=== PATIENT | female | born 1975 | race Caucasian/White ===

== ENCOUNTER 2017-04-20 14:05 | Emergency (ER) | payer BC ==
[~2017-04-20] VITALS: Ht 180.3 cm; Wt 155.1 kg
[2017-04-20 14:05] VITALS: BP_SYST 143
[2017-04-20 14:37] LABS: BASOPHILS # (AUTO) 0.1 K/uL (0.0-0.2); BASOPHILS % (AUTO) 1.8 % (0.0-2.0); EOSINOPHILS # (AUTO) 0.1 K/uL (0.0-0.4); EOSINOPHILS % (AUTO) 0.8 % (0.0-4.0); HEMATOCRIT 38.5 % (36-48); HEMOGLOBIN 12.5 g/dL (12.0-16.0); LYMPHOCYTES # (AUTO) 1.5 K/uL (1.0-5.5); LYMPHOCYTES % (AUTO) 19.7 % (20.5-51.5); MEAN CORPUSCULAR HEMOGLOBIN 26 pg (27-31); MEAN CORPUSCULAR HGB CONC 33 % (32-36); MEAN CORPUSCULAR VOLUME 80 fL (79.0-98.0); MONOCYTES # (AUTO) 0.7 K/uL (0.0-1.0); MONOCYTES % (AUTO) 8.7 % (1.7-9.3); NEUTROPHILS # (AUTO) 5.2 K/uL (1.8-7.7); PLATELET COUNT (AUTO) 191 K/uL (130-430); RED BLOOD CELL COUNT(AUTO) 4.79 MIL/uL (4.2-6.2); RED CELL DISTRIBUTION WIDTH 14.8 % (9.0-15.0); WHITE BLOOD COUNT (AUTO) 7.6 K/uL (4.8-10.8)
[2017-04-20 14:41] LABS: CREATININE 1.25 mg/dL (0.55-1.30); POTASSIUM 3.2 mmol/L (3.5-5.1)
[2017-04-20 14:44] LABS: PROTHROMBIN TIME 11.3 SECS (9.5-12.5)
[2017-04-20 14:46] LABS: ALBUMIN 2.5 g/dL (3.4-4.8); TOTAL BILIRUBIN 0.5 mg/dL (0.0-1.0); TOTAL PROTEIN, SERUM 6.8 g/dL (6.4-8.3)
--- NOTE | 2017-04-20 14:55 | NUR ---
Pt placed in bed 6 by triage nurse.
--- NOTE | 2017-04-20 14:58 | NUR ---
Pt her for c/o multiple syncopal episodes within a week. Pt stated she had 2 syncopal episodes today, one at 0530 am and another at 1300 today. Pt c/o LOC, witnessed at 1300 today. Brusing noted to left upper arm, and abrasions to toes. Pt states she had gastric bypass surgery March 2017. EKG done at bedside. Pt is placed on electronic device monitor and continuous pulse ox. Will continue to monitor pt.
--- NOTE | 2017-04-20 15:00 | NUR ---
Dr. Asencio at bedside to assess pt.
--- NOTE | 2017-04-20 15:08 | NUR ---
Pt taken to CT with tech, no distress noted.
[2017-04-20] MEDS ORDERED: NACL 0.9% 1,000 ML IV ONE (15:45)
[2017-04-20] MEDS ORDERED: DEXTROSE 50% JECT 50 ML DISP.SYRIN IVP ONE (15:45)
[2017-04-20 18:08] VITALS: BP_SYST 118
--- NOTE | 2017-04-20 18:08 | NUR ---
Patient given written and verbal discharge instructions and verbalizes understanding. ER MD discussed with patient the results and treatment provided. Patient in stable condition. ID arm band removed. IV catheter removed intact and dressing applied, no active bleeding.Opportunity for questions provided and answered.
== END 2017-04-20 18:08 | disposition home or self-care (01) ==
LOC: SED 14:05
DX: E86.0 Dehydration (principal); R55 Syncope and collapse; E11.9 Type 2 diabetes mellitus without complications; I10 Essential (primary) hypertension; E66.01 Morbid (severe) obesity due to excess calories; Z68.42 Body mass index [BMI] 45.0-49.9, adult; Z98.84 Bariatric surgery status
CPT/HCPCS: 36415; 70450; 71010; 80053; 81025; 82550; 84484; 85025; 85610; 85730; 93005; 96360; 99285; J7030

== ENCOUNTER 2019-08-21 14:40 | Inpatient (IN) | payer MEDICAID, OTHER ==
[~2019-08-21] VITALS: Ht 180.3 cm; Wt 98.0 kg
[~2019-08-21 14:40] MED LIST: AMOX-423 PO; BIOT5000 PO; CALC-823 PO; CYAN50008 SL; D3/R1CAP PO; ESCI20TA PO; FERR-69 PO; FLAX1CAP6 PO; FOLI400T4 PO; FURO-149 PO; LISI-600 PO; MULT-1089 PO; MV-M1CAP18 PO; OMEG-155 PO
[2019-08-21 14:44] VITALS: BP_SYST 152
--- NOTE | 2019-08-21 15:18 | NUR ---
BROUGHT BACK TO BED #4 VIA WHEELCHAIR, PLACED IN BED AND REPORT GIVEN TO AILEEN
--- NOTE | 2019-08-21 15:35 | NUR ---
DR HALL AT BEDSIDE FOR EVALUATION
--- NOTE | 2019-08-21 15:40 | NUR ---
Pt awake, alert, oriented x4. Pt states she has had Diabetic ulcer on R foot for approx 2 weeks and has had increased swelling and pain in R foot and leg without relief for 2 weeks. Pt states that she has infections in the past and was worried the infection was getting worse. Pt has good CMS to affected extremity, has had nausea, vomiting and chills. Pt denies SOB, CP, Pt is Afebrile upon presenting to ED or any other medical complaint at this time. pt VSS, will continue to monitor. Pt provided with blanket for comfort.
--- NOTE | 2019-08-21 15:42 | NUR ---
# 20 gauge angiocath placed to LAC. Use of asceptic technique. Opsite placed over site. Blood return noted. Flushed with 10 cc of normal saline. No evidence of infiltration noted. Patient tolerated well.
[2019-08-21] MEDS ORDERED: VANCOMYCIN HCL 1,000 MG in NS 250 ML IV ONE (15:45)
[2019-08-21] MEDS ORDERED: NS 1000 ML IV.SOLN IV ONE ×2 (15:45→18:30)
[2019-08-21] MEDS ORDERED: MORPHINE 4 MG/ML INJ. SYRINGE IVP ONE (15:45)
[2019-08-21] MEDS ORDERED: PIPERACILLIN/TAZO 3.375 GM in NS 50 ML IV ONE (15:45)
[2019-08-21] MEDS ORDERED: ONDANSETRON HCL 4 MG/2 ML VIAL IVP ONE ×2 (15:45→18:30)
--- NOTE | 2019-08-21 15:45 | NUR ---
Pt resting in Bed confortably. No acute signs of distress at this time. Pt states some pain relief at this time.
[2019-08-21 15:46] LABS: HEMATOCRIT 29.2 % (36-48); HEMOGLOBIN 9.5 g/dL (12.0-16.0); MEAN CORPUSCULAR HEMOGLOBIN 28 pg (27-31); MEAN CORPUSCULAR HGB CONC 33 % (32-36); MEAN CORPUSCULAR VOLUME 87 fL (79.0-98.0); PLATELET COUNT (AUTO) 379 K/uL (130-430); RED BLOOD CELL COUNT(AUTO) 3.38 MIL/uL (4.2-6.2); RED CELL DISTRIBUTION WIDTH 13.4 % (9.0-15.0)
--- NOTE | 2019-08-21 15:52 | NUR ---
Patient's code status is FULL CODE paperwork completed and placed in chart.
--- NOTE | 2019-08-21 15:53 | NUR ---
Medication reconciliation completed with information provided by PATIENT. Any prior medication reconciliation on file was reviewed and corrected.
[2019-08-21 15:56] LABS: INR 1.1 (0.8-1.2)
[2019-08-21 16:07] LABS: BAND % (MANUAL) 10 % (0-6); BASOPHILS % (MANUAL) 0 % (0-2); EOSINOPHILS % (MANUAL) 0 % (0-7); LYMPHOCYTES % (MANUAL) 4 % (20-46); MONOCYTES % (MANUAL) 4 % (0-11)
[2019-08-21] MEDS ORDERED: PIPERACILLIN/TAZOBACTAM 3.375 GM/VIAL (ZOSYN) IV ONE ×2 (16:09→21:41)
[2019-08-21] MEDS ORDERED: VANCOMYCIN HCL 1000 MG/VIAL IV ONE ×2 (16:09→21:41)
[2019-08-21] MEDS ORDERED: ONDANSETRON HCL 4 MG/2 ML VIAL ONE (16:12)
[2019-08-21 16:13] LABS: ALBUMIN 1.2 g/dL (3.4-4.8); CREATININE 1.87 mg/dL (0.55-1.30); POTASSIUM 4.4 mmol/L (3.5-5.1); TOTAL BILIRUBIN 0.3 mg/dL (0.0-1.0)
[2019-08-21] MEDS ORDERED: NACL 0.9% 1,000 ML IV ONE (16:15)
--- NOTE | 2019-08-21 16:27 | NUR ---
Patient will be admitted to care of Dr. Ramon. Admitted to Med Surg unit. Will go to room 100B. Belongings list completed. Summary report printed. Report will be given at bedside.
[2019-08-21] MEDS ORDERED: 0.45% NACL 1,000 ML IV ONE (16:30)
[2019-08-21 16:38] LABS: CALCIUM 7.8 mg/dL (8.4-11.0)
--- NOTE | 2019-08-21 17:40 | NUR ---
Transfer to [facility]. IV present in LAC no sign or symptom of infiltration. Report Given to JODI Rogers
--- NOTE | 2019-08-21 17:41 | NUR ---
Lab Bedside Drawing LActic #2
--- NOTE | 2019-08-21 18:15 | NUR ---
ADMISSION NOTES. RECEIVED PT FROM E.R. , PT IS AAOX4, ON ROOM AIR. VITALS WNL. PT ADMITTED UNDER DR BAUTISTA WITH DX OF R. FOOT CELLULITIS. DENIES PAIN AT THIS TIME. PT GIVEN MORPHINE AT E.R. PHOTO OF WOUNDS TAKEN. ON R. FOOT. DR BAUTISTA SAW PICTURES, TOLD MD THAT WE GOT WOUND CULTURE SWABS. PT EDUCATED ON THE USE OF THE CALL LIGHT TV AND BED CONTROLS. WILL ENDORSE TO NIGHT NURSE.
[2019-08-21] MEDS ORDERED: CLINDAMYCIN PHOSPHATE 600 mg/50mL D5W IV ONE (18:30)
[2019-08-21] MEDS ORDERED: PROPOFOL 200MG/ 20ML VIAL (DIPRIVAN) IV ONE (18:30)
[2019-08-21] MEDS ORDERED: AMPICILLIN SODIUM 1 GM VIAL IV ONE (18:30)
[2019-08-21] MEDS ORDERED: fentaNYL CITRATE 250 MCG/5 ML AMP IV ONE (18:30)
[2019-08-21] MEDS ORDERED: SEVOFLURANE 15 MIN GAS INH ONE (18:30)
[2019-08-21] MEDS ORDERED: ROCURONIUM BROMIDE 10 MG/ML (ZEMURON) IV ONE (18:30)
[2019-08-21] MEDS ORDERED: MIDAZOLAM HCL 5 MG/5 ML VIAL IVP ONE (18:30)
[2019-08-21] MEDS ORDERED: KETOROLAC TROMETHAMINE 30 MG VIAL IVP ONE (18:30)
[2019-08-21] MEDS ORDERED: DEXAMETHASONE SOD PHOSPHATE 4 MG/ML VIAL IVP ONE (18:30)
[2019-08-21 18:43] VITALS: BP_SYST 127
--- NOTE | 2019-08-21 19:34 | NUR ---
PRIMARY PRODUCTS INSPECTORS ROSALBA MADE AWARE OF THE CONSULT, ROSALBA SAID HE WILL SEE PT ON SATURDAY.
--- NOTE | 2019-08-21 19:35 | NUR ---
CHANGE OF SHIFT: endorsed pt. , was just admitted from ER with Diagnosis of Rt. foot cellulitis. checked pt. alert , awake, oriented to her room and use of call light. rt. foot wound with dressing intact. IV NS infusing via left antecubital, IV pump alarming pt. bending her arm fo occlusion. will reassess later.
--- NOTE | 2019-08-21 19:50 | NUR ---
CONSULTATION PAGED/CALLED Reason for Consultation: CELLULITIS OF RIGHT FOOT Person Who was Notified: NICOLAS Consulting Physician: DR. DUBOSE Ordering Physician: DR. BAUTISTA
[2019-08-21 20:00] VITALS: BP_SYST 113
--- NOTE | 2019-08-21 20:00 | NUR ---
ADMISSION PHYSICAL ASSESSMENT NOTES; pt. awake, alert and oriented. instructed to use call light for help. IV NS infusing, will need to restart another IV site. moves all extremities , noted bilateral swelling of both lower extremities , more on rt. side, rt. foot wound with dressing intact. pain free at this time, was given Morphine earlier. pictures taken on admission and wound care referral consult made. on room air, no shortness of breath. VS checked.
--- NOTE | 2019-08-21 21:30 | NUR ---
NOTES: BS checked 194 will give sliding scale coverage. repositioned self for comfort. IV NS still infusing. pt. starts dozing on and off.
[2019-08-21] MEDS: PIPERACILLIN/TAZO 3.375/DEX-IS 50 ML IV SCH (22:00)
--- NOTE | 2019-08-21 22:00 | NUR ---
NOTES: pt. asking for sleeping pill, informed pt. MD needs to be called, mathematical engineering technician asked to call Dr. aguilar.
--- NOTE | 2019-08-21 22:30 | NUR ---
NOTES: another IV site started on left hand with gauge #22, new IV of 1/2 NS @ 75 cc/hr started and IV antibiotic , kept IV lock on left antecubital.
[2019-08-21] MEDS: INSULIN REGULAR, HUMAN 100 UNITS/ML, 10 ML VIAL (humuLIN R) SUBCUT PRN (22:33)
--- NOTE | 2019-08-21 22:37 | NUR ---
Paged Dr. Ramon
--- NOTE | 2019-08-21 23:00 | NUR ---
NOTES: Dr. Ramon called back and got an order for sleeping pill, needs pharmacy to verify.
--- NOTE | 2019-08-22 00:05 | NUR ---
NOTES: checked pt. and she is sleeping soundly at this time, did not wake up for sleeping pill.
[2019-08-22 00:25] VITALS: BP_SYST 118
--- NOTE | 2019-08-22 03:30 | NUR ---
NOTES: made rounds, pt. remain sleeping. condition unchanged.
[2019-08-22] MEDS ORDERED: VANCOMYCIN HCL 1 GM/NS PREMIX 250 ML IV SCH (04:00)
--- NOTE | 2019-08-22 06:00 | NUR ---
NOTES; pt. awakened and checked BS , no insulin needed. IV antibiotic infusing. still sleepy.
[2019-08-22] MEDS: PIPERACILLIN/TAZO 3.375/DEX-IS 50 ML IV SCH ×3 (06:03→21:23)
[2019-08-22 06:15] LABS: BASOPHILS # (AUTO) 0.1 K/uL (0.0-0.2); BASOPHILS % (AUTO) 0.3 % (0.0-2.0); EOSINOPHILS # (AUTO) 0.1 K/uL (0.0-0.4); EOSINOPHILS % (AUTO) 0.5 % (0.0-4.0); HEMOGLOBIN 7.7 g/dL (12.0-16.0); LYMPHOCYTES # (AUTO) 1.1 K/uL (1.0-5.5); MEAN CORPUSCULAR HEMOGLOBIN 28 pg (27-31); MEAN CORPUSCULAR HGB CONC 32 % (32-36); MEAN CORPUSCULAR VOLUME 88 fL (79.0-98.0); MONOCYTES # (AUTO) 1.8 K/uL (0.0-1.0); MONOCYTES % (AUTO) 9.5 % (1.7-9.3); NEUTROPHILS # (AUTO) 15.8 K/uL (1.8-7.7); NEUTROPHILS % (AUTO) 83.7 % (40.0-70.0); PLATELET COUNT (AUTO) 255 K/uL (130-430); RED BLOOD CELL COUNT(AUTO) 2.73 MIL/uL (4.2-6.2); RED CELL DISTRIBUTION WIDTH 13.7 % (9.0-15.0); WHITE BLOOD COUNT (AUTO) 18.9 K/uL (4.8-10.8)
[2019-08-22 06:19] LABS: CALCIUM 7.2 mg/dL (8.4-11.0); CREATININE 1.9 mg/dL (0.55-1.30); POTASSIUM 4.2 mmol/L (3.5-5.1)
--- NOTE | 2019-08-22 06:30 | NUR ---
CLOSING NOTES; pt. ambulated to the restroom , voided and had BM. IVF patent. noted some rt. foot discomfort but tolerable when in bed and resting. rt. foot dressing intact, noted some foul,odor smell. consult with Dr. Gupta today. pt. needs attended. for further assistance. call light within reach.
--- NOTE | 2019-08-22 07:30 | NUR ---
Opening note Patient resting in bed at this time, A/Ox4, no complaints of pain. No SOB. Iv patent, intact, and infusing as ordered. No adverse side effects noted. No infiltration noted. On safety and aspiration precautions, HOB kept elevated, 3 side rails up, call light within reach. Patient in stable condition. Will continue to monitor.
[2019-08-22 08:15] VITALS: BP_SYST 145
[2019-08-22] MEDS: CITALOPRAM HYDROBROMIDE 20 MG TABLET PO SCH (08:55)
[2019-08-22] MEDS: HYDROcodone/ACETAMIN 5-325 MG TAB (NORCO/ VICODIN) PO PRN ×2 (08:56→16:13)
--- NOTE | 2019-08-22 09:00 | NUR ---
medications All morning medications given as ordered. No adverse side effects noted. No nausea, no vomiting noted.
--- NOTE | 2019-08-22 11:00 | NUR ---
Wound care Wound care done as ordered. New dressing applied. No complaints of pain at this time. patient in stable condition.
[2019-08-22 11:26] VITALS: BP_SYST 106
[2019-08-22] MEDS: INSULIN REGULAR, HUMAN 100 UNITS/ML, 10 ML VIAL (humuLIN R) SUBCUT PRN ×2 (11:37→21:27)
--- NOTE | 2019-08-22 13:00 | NUR ---
Lunch patient sitting up in bed at this time, eating lunch, tolerating well. No nausea, no vomiting noted. no complaints of abdominal pain.
--- NOTE | 2019-08-22 15:00 | NUR ---
Rounds Patient resting in bed at this time, no SOB. Iv patent, and intact. No infiltration noted.
[2019-08-22 15:19] VITALS: BP_SYST 104
[2019-08-22] MEDS ORDERED: FLU VACC QS2019-20 36MOS UP/PF 60 MCG/0.5 ML SYRINGE I.M. PRN (16:00)
[2019-08-22] MEDS: VANCOMYCIN HCL 1,750 MG in NS 500 ML IV SCH (16:12)
--- NOTE | 2019-08-22 16:15 | NUR ---
Flu shot patient consented for the flu shot, given as ordered. no adverse side effects noted. no complaints of pain.
--- NOTE | 2019-08-22 17:35 | NUR ---
CONSULTATION PAGED REASON FOR CONSULTATION:CELLULITIS OF RIGHT FOOT WAS CONSULT CALLED?Y PERSON WHO WAS NOTIFIED:HAKEEM CONSULTING PHYSICIAN:RIAN LOPEZ ( TELEPHONE TRIAGE NURSE) EXCEL DEVELOPER SPECIALTY:INFECTIOUS DISEASE EXCEL DEVELOPER PHONE NUMBER:[phone] REQUESTING PHYSICIAN:SARAY VELEZ
--- NOTE | 2019-08-22 18:47 | NUR ---
Closing note Patient resting in bed at this time, A/Ox4, no complaints of pain. No SOB. Iv patent, intact. No adverse side effects noted. No infiltration noted. On safety and aspiration precautions, HOB kept elevated, 3 side rails up, call light within reach. Patient in stable condition. All needs met.
[2019-08-22 19:50] VITALS: BP_SYST 111
--- NOTE | 2019-08-22 19:50 | NUR ---
Opening notes Pt AAOx4, VSS, afebrile. No c/o pain. IV saline lock L hand 22G and L. AC 20G clear and patent. Family at bedside. R. foot dressing intact. Call light within reach. To monitor.
--- NOTE | 2019-08-22 21:27 | NUR ---
Blood sugar Blood sugar checked 189, 2 units Regular insulin administered per ss protocol. IV antibiotic administered as scheduled. To monitor.
[2019-08-22] MEDS: TEMAZEPAM 15 MG CAPSULE PO PRN (22:08)
--- NOTE | 2019-08-22 22:18 | NUR ---
WOUND CARE R. foot sole wound with moderate amount of light brown drainage and odor noted. Dressing cleansed with NS and applied foam dressing, secured with kerlix and tape, pt tolerated well. To monitor.
[2019-08-23 00:05] VITALS: BP_SYST 103
--- NOTE | 2019-08-23 00:30 | NUR ---
ROUNDS Pt asleep, no s/s distress noted. Call light/items within reach. Bed low, locked, siderails up x2. To monitor.
--- NOTE | 2019-08-23 04:20 | NUR ---
Rounds Pt asleep, respirations even and unlabored. Call light/items within easy reach. Bed low, locked, siderails up x2. To monitor.
[2019-08-23] MEDS: PIPERACILLIN/TAZO 3.375/DEX-IS 50 ML IV SCH ×3 (06:29→21:42)
--- NOTE | 2019-08-23 06:30 | NUR ---
Closing notes Pt asleep, easily arousable. No distress noted. Pt states she slept well. IV abx administered as scheduled L. hand 22G clear and patent. Blood sugar checked 126 this AM, no indication for insulin per protocol. R. foot dressing intact. Call light within reach. Safety measures in place. To endorse to AM nurse.
--- NOTE | 2019-08-23 07:27 | NUR ---
Opening note Patient resting in bed at this time, A/Ox4, no complaints of pain. No SOB. Iv patent, intact. No adverse side effects noted. No infiltration noted. Dressing on foot intact. On safety and aspiration precautions, HOB kept elevated, 3 side rails up, call light within reach. Patient in stable condition. Will continue to monitor.
[2019-08-23 08:00] VITALS: BP_SYST 107
[2019-08-23] MEDS: HYDROcodone/ACETAMIN 5-325 MG TAB (NORCO/ VICODIN) PO PRN (08:20)
[2019-08-23] MEDS: CITALOPRAM HYDROBROMIDE 20 MG TABLET PO SCH (08:20)
--- NOTE | 2019-08-23 09:00 | NUR ---
medications All morning medications given as ordered. No adverse side effects noted. No nausea, no vomiting.
--- NOTE | 2019-08-23 10:23 | NUR ---
Nutrition Update Gurpreet Scale 17 noted. Pt admitted for cellulitis. Diet: [facility] BMI: 30 kg/m2 RD to follow per nutrition care standards.
--- NOTE | 2019-08-23 11:00 | NUR ---
Wound care/ Changes Old dressing removed. Patient noted with worsening of the wound during wound care. right foot 2nd toe purplish in color with heavy Serosanguineous drainage. Dr. Childers (ID) at bedside, stated to call Dr. zurita, and lauren. New orders for clindamycin, x ray of foot. Cleansed patient foot with NS as ordered, dressing change done as ordered. Patient awaiting to be seen by Dr. Zurita.
[2019-08-23] MEDS ORDERED: CLINDAMYCIN 600 MG in D5W 50 ML IV STA (11:07)
--- NOTE | 2019-08-23 11:07 | NUR ---
PAGED PAGED SARAY VELEZ AT [phone] SPOKE WITH KELSEY.
--- NOTE | 2019-08-23 11:19 | NUR ---
PAGED PAGED KIMBERLEE DAILY AT [phone] SPOKE WITH TEMO.
[2019-08-23] MEDS: INSULIN REGULAR, HUMAN 100 UNITS/ML, 10 ML VIAL (humuLIN R) SUBCUT PRN ×3 (11:48→21:19)
[2019-08-23 11:56] LABS: BILIRUBIN,URINE NEGATIVE (NEGATIVE); BLOOD, URINE 2+ (NEGATIVE); CLARITY/URINE CLEAR (CLEAR); COLOR,URINE YELLOW (YELLOW); GLUCOSE,URINE 1+ (NEGATIVE); KETONES,URINE NEGATIVE (NEGATIVE); LEUKOCYTE ESTERASE ,URINE NEGATIVE (NEGATIVE); NITRITE, URINE NEGATIVE (NEGATIVE); PH,URINE 7.5 (5.0-8.0); PROTEIN URINE 3+ (NEGATIVE)
[2019-08-23 12:00] VITALS: BP_SYST 125
[2019-08-23 12:05] LABS: BACTERIA,URINE MODERATE /HPF (None Seen); COARSE GRANULAR CASTS,URINE 0-10 /LPF (None Seen); WBC,URINE 0-3 /HPF (0-3)
--- NOTE | 2019-08-23 13:00 | NUR ---
Lunch patient sitting up in bed at this time, eating dinner, tolerating well. No nausea, no vomiting. No abdominal pain.
[2019-08-23] MEDS ORDERED: GLUCOSE 15 GM GEL (in 37.5 GM TUBE) PO PRN (14:00)
[2019-08-23] MEDS ORDERED: D5W 1,000 ML IV PRN (14:00)
[2019-08-23] MEDS ORDERED: DEXTROSE 50%-WATER 50 ML DISP.SYRIN IVP PRN (14:00)
--- NOTE | 2019-08-23 15:00 | NUR ---
Dr. aguilar rounds Patient seen by , patient to be seen by Dr. cowan.
--- NOTE | 2019-08-23 15:37 | NUR ---
Dietitian Recommendations * Recommend continuing [facility] diet * Small portions TID * ADAIR provided diabetic recipes ADAIR TODD Please refer to Nutrition Assessment for details. Addendum: 08/23/19 at [address] Amended: Links added.
[2019-08-23] MEDS: VANCOMYCIN HCL 1,750 MG in NS 500 ML IV SCH (16:17)
--- NOTE | 2019-08-23 17:30 | NUR ---
Dinner patient sitting up in bed at this time, eating dinner, tolerating well. No nausea, no vomiting noted.
--- NOTE | 2019-08-23 18:50 | NUR ---
Closing note Patient resting in bed at this time, A/Ox4, no complaints of pain. No SOB. Iv patent, intact. No adverse side effects noted. No infiltration noted. Dressing on foot intact. On safety and aspiration precautions, HOB kept elevated, 3 side rails up, call light within reach. Patient in stable condition. All needs met.
--- NOTE | 2019-08-23 19:35 | NUR ---
ROUNDS PATIENT RESTING IN BED, WATCHING TV, VITALS STABLE, NO PAIN AT THIS TIME. ASSESSMENT DONE AND DOCUMENTED. SEE FLOWSHEET. NEEDS ATTENDED TO. SAFETY MEASURES MAINTAINED. BED IN LOW AND LOCKED POSITION. CALL LIGHT PLACED WITHIN REACH.
--- NOTE | 2019-08-23 19:46 | NUR ---
PAGED PAGED KIMBERLEE DAILY AT [phone] SPOKE WITH SOFI ROBLES JUICE STANDARDIZER.
[2019-08-23] MEDS: CLINDAMYCIN 600 MG in D5W 50 ML IV SCH (20:33)
--- NOTE | 2019-08-23 21:00 | NUR ---
DR. MONTAÑO PATIENT SEEN AND EXAMINED BY DR. MONTAÑO WITH NEW ORDERS, WILL CONTINUE TO MONITOR.
[2019-08-23] MEDS: TEMAZEPAM 15 MG CAPSULE PO PRN (21:15)
[2019-08-24 00:10] VITALS: BP_SYST 98
--- NOTE | 2019-08-24 00:13 | NUR ---
PATIENT RESTING: Patient resting quietly. No acute distress noted. Vital signs within normal range.
--- NOTE | 2019-08-24 04:14 | NUR ---
PATIENT RESTING: Patient resting quietly. No acute distress noted. Vital signs within normal range.
[2019-08-24] MEDS: CLINDAMYCIN 600 MG in D5W 50 ML IV SCH ×3 (04:44→20:00)
[2019-08-24] MEDS: PIPERACILLIN/TAZO 3.375/DEX-IS 50 ML IV SCH (05:41)
--- NOTE | 2019-08-24 06:50 | NUR ---
CLOSING NOTES PATIENT AWAKE, VITALS STABLE, NO PAIN AT THIS TIME. ALL NEEDS ATTENDED TO. SAFETY MEASURES MAINTAINED. CALL LIGHT PLACED WITHIN REACH.
--- NOTE | 2019-08-24 07:50 | NUR ---
INITIAL NOTE RECEIVED PT IN BED, NO S/S OF DISTRESS OR SOB NOTED, PT HAS NO C/O PAIN AT THIS TIME, PT IN STABLE CONDITION, PT AAOX4, VERBAL. IV CATHETER PATENT, SALINE LOCK, NO SIGNS OF INFECTION OR INFILTRATION NOTED. PT HAS A DRESSING ON RIGHT FOOT, CLEAN AND DRY. PT NPO AFTER BREAKFAST FOR I&D TODAY. PT HAS BILATERAL SCD'S IN PLACE. BED AT LOWEST POSITION, CALL LIGHT WITHIN REACH, WILL CONTINUE TO MONITOR PT FOR ANY CHANGES, FALL AND SAFETY PRECAUTIONS IN PLACE. ELEVATED RIGHT FOOT.
[2019-08-24 08:16] VITALS: BP_SYST 124
[2019-08-24] MEDS: CITALOPRAM HYDROBROMIDE 20 MG TABLET PO SCH (08:18)
[2019-08-24 09:23] LABS: HCG,QUAL RESULT NEGATIVE (NEGATIVE)
--- NOTE | 2019-08-24 10:13 | NUR ---
ROUNDS PT IN BED, NO S/S OF DISTRESS OR SOB NOTED,PT HAS NO C/O PAIN AT THIS TIME, PT IN STABLE CONDITION, PT TALKING ON THE PHONE, WILL CONTINUE TO MONITOR PT FOR ANY CHANGES.
[2019-08-24 11:22] VITALS: BP_SYST 107
[2019-08-24] MEDS: INSULIN REGULAR, HUMAN 100 UNITS/ML, 10 ML VIAL (humuLIN R) SUBCUT PRN ×3 (11:32→21:56)
--- NOTE | 2019-08-24 12:15 | NUR ---
ROUNDS PT IN BED, NO S/S OF DISTRESS OR SOB NOTED,PT HAS NO C/O PAIN AT THIS TIME, PT IN STABLE CONDITION, PT RESTING COMFORTABLY, WILL CONTINUE TO MONITOR PT FOR ANY CHANGES.
[2019-08-24] MEDS: AMPICILLIN SODIUM 1 GM in NS 50 ML IV SCH ×2 (13:17→22:00)
--- NOTE | 2019-08-24 14:52 | NUR ---
MD CLARENCE GUTIERREZ, AWARE OF PATIENT'S CONDITION. Addendum: 08/24/19 at 1725 by Yolanda Crockett RN DR BAUTISTA ORDERED 2 UNITS OF PRBC'S TO BE GIVEN AFTER HER I&D, CHARGE NURSE MADE AWARE.
--- NOTE | 2019-08-24 14:52 | NUR ---
ROUNDS PT IN BED, NO S/S OF DISTRESS OR SOB NOTED, PT HAS NO C/O PAIN AT THIS TIME, PT IN STABLE CONDITION, PT RESTING COMFORTABLY AWAITING I&D, WILL CONTINUE TO MONITOR PT FOR ANY CHANGES.
[2019-08-24 15:12] VITALS: BP_SYST 120
[2019-08-24] MEDS: VANCOMYCIN HCL 1,750 MG in NS 500 ML IV SCH (15:51)
--- NOTE | 2019-08-24 18:30 | NUR ---
OR PT LEFT UNIT TO OR, PT IN STABLE CONDITION, NO S/S OF DISTRESS OR SOB NOTED, PT HAS NO C/O PAIN AT THIS TIME, PT IN STABLE CONDITION.
[2019-08-24] MEDS ORDERED: LR 1,000 ML IV SCH (18:44)
[2019-08-24] MEDS ORDERED: HYDROmorphone 1 MG INJ. 1 MG/ML AMPUL IVP PRN (18:45)
[2019-08-24] MEDS ORDERED: MEPERIDINE HCL/PF 25 MG/ML DISP.SYRIN IVP PRN (18:45)
[2019-08-24] MEDS ORDERED: HYDROmorphone 2 MG/ML VIAL IVP PRN ×2 (18:45)
[2019-08-24] MEDS ORDERED: POLYMYXIN 500,000/BACIT.10,000 UNITS in NS IRR 1 L IR ONE (19:14)
[2019-08-24 21:00] VITALS: BP_SYST 129
--- NOTE | 2019-08-24 21:00 | NUR ---
Returned from OR Receilved bedside report from JODI Fox. Received patient awake, presently denies pain. Able to wiggle toes. VSS, nonlabored breathing, oxygen saturation 97% on room air.
[2019-08-24 21:41] VITALS: BP_SYST 120
--- NOTE | 2019-08-24 22:55 | NUR ---
BT INITIATION: Consent signed per patient agreeing to administration of blood. Blood has been type and crossmatched. Blood sent from blood bank. Information on unit of blood checked against patient wristband at bedside by two nurses. All information matches. Patient informed of potential complications associated with blood transfusion. Informed of possible transfusion reaction symptoms. Aware of need to notify nurse at once of itching, shortness of breath, flushing, feeling of impending doom, or other symptoms not previously present. Vital signs taken within 5 minutes prior to initiation of transfusion. RN will remain with patient for first 15 minutes of transfusion at which time vital signs will be re-assessed.
[2019-08-24] MEDS: TEMAZEPAM 15 MG CAPSULE PO PRN (23:16)
[2019-08-25] VITALS: BP_SYST 100
--- NOTE | 2019-08-25 02:40 | NUR ---
2nd unit BT initiate Blood has been type and crossmatched. Blood sent from blood bank. Information on unit of blood checked against patient wristband at bedside by two nurses. All information matches. Patient informed of potential complications associated with blood transfusion. Informed of possible transfusion reaction symptoms. Aware of need to notify nurse at once of itching, shortness of breath, flushing, feeling of impending doom, or other symptoms not previously present. Vital signs taken within 5 minutes prior to initiation of transfusion. RN will remain with patient for first 15 minutes of transfusion at which time vital signs will be re-assessed.
--- NOTE | 2019-08-25 05:03 | NUR ---
2nd unit blood transfusion complete 2nd unit of blood complete. Patient resting w/ eyes closed, arousable and denies any symptoms of transfusion reaction.
[2019-08-25] MEDS: AMPICILLIN SODIUM 1 GM in NS 50 ML IV SCH ×4 (05:16→18:45)
[2019-08-25] MEDS: CLINDAMYCIN 600 MG in D5W 50 ML IV SCH ×3 (05:59→20:58)
[2019-08-25 06:42] LABS: BASOPHILS # (AUTO) 0.1 K/uL (0.0-0.2); BASOPHILS % (AUTO) 0.7 % (0.0-2.0); EOSINOPHILS # (AUTO) 0.2 K/uL (0.0-0.4); EOSINOPHILS % (AUTO) 1.6 % (0.0-4.0); HEMATOCRIT 25.3 % (36-48); HEMOGLOBIN 8.3 g/dL (12.0-16.0); LYMPHOCYTES # (AUTO) 1.4 K/uL (1.0-5.5); LYMPHOCYTES % (AUTO) 9.3 % (20.5-51.5); MEAN CORPUSCULAR HEMOGLOBIN 29 pg (27-31); MEAN CORPUSCULAR HGB CONC 33 % (32-36); MEAN CORPUSCULAR VOLUME 87 fL (79.0-98.0); MONOCYTES # (AUTO) 1.4 K/uL (0.0-1.0); MONOCYTES % (AUTO) 9.5 % (1.7-9.3); NEUTROPHILS # (AUTO) 11.7 K/uL (1.8-7.7); NEUTROPHILS % (AUTO) 78.9 % (40.0-70.0); PLATELET COUNT (AUTO) 298 K/uL (130-430); RED CELL DISTRIBUTION WIDTH 13.9 % (9.0-15.0); WHITE BLOOD COUNT (AUTO) 14.9 K/uL (4.8-10.8)
[2019-08-25 06:53] LABS: CALCIUM 7.1 mg/dL (8.4-11.0); CREATININE 3.54 mg/dL (0.55-1.30); POTASSIUM 4.3 mmol/L (3.5-5.1)
--- NOTE | 2019-08-25 06:55 | NUR ---
Fingerstick BGT / closing note .Fingerstick BGT done w/ result of 127, no coverage is due. Patient sitting upright talking on phone. Denies pain, discomfort. Nonlabored breathing, no distress. Safety precautions maintained and call light w/in reach.
[2019-08-25 07:38] VITALS: BP_SYST 102
--- NOTE | 2019-08-25 07:48 | NUR ---
INITIAL NOTE RECEIVED PT IN BED, NO S/S OF DISTRESS OR SOB NOTED, PT HAS NO C/O PAIN AT THIS TIME, PT IN STABLE CONDITION, PT AAOX4, VERBAL. IV CATHETER PATENT, SALINE LOCK, NO SIGNS OF INFECTION OR INFILTRATION NOTED. PT HAS A DRESSING ON RIGHT FOOT, CLEAN AND DRY. BED AT LOWEST POSITION, CALL LIGHT WITHIN REACH, WILL CONTINUE TO MONITOR PT FOR ANY CHANGES, FALL AND SAFETY PRECAUTIONS IN PLACE. ELEVATED RIGHT FOOT. Addendum: 08/25/19 at 0950 by Yolanda Crockett RN PT ABLE TO WIGGLE TOES ON RIGHT FOOT DUE TO PARTIAL DRESSING, SECOND TOE IS DARK IN COLOR AND UNABLE TO CHECK CAPILLARY REFILL, EDUCATED PT ON USE OF INCENTIVE SPIROMETER, PT TO USE 10 TIMES AN HOUR WHILE AWAKE, PT VERBALIZED UNDERSTANDING, PT AT 2000ML.
[2019-08-25] MEDS: CITALOPRAM HYDROBROMIDE 20 MG TABLET PO SCH (08:20)
--- NOTE | 2019-08-25 10:58 | NUR ---
DC Planning: discharge barriers: Per ID 's progress note: the pt will need IV abx x 6 months , currently on IV Clindamycin q8hr, IV amplicilin Q6 hr and IV Vanco q 24 hr. and possible HBO as out patient. The Pt is self pay. Per Ha, the pt is not eligible for the hospital presumptive medical dt pending approval medical screening that the pt filed recently.
[2019-08-25 11:25] VITALS: BP_SYST 97
--- NOTE | 2019-08-25 11:39 | NUR ---
Driller Brake Lining/Discharge Planning PRODUCTION CHECKER conducted a Discharge Plan Assessment. Noted that patient is self pay and [employer] is on the case. Noted that patient may need 6 weeks IV antibiotics. Will need insurance in place. PRODUCTION CHECKER met with patient at bedside. Patient stated she recently started the [employer] application. She is agreeable to having [employer] assist with moving her [employer] case forward while she is in the hospital. Left a voicemail with Ha of [employer], . Patient understands her condition is very serious and stated she will comply with orders. She stated she has child care aide at this time. Barriers to discharge include no insurance in place and not eligible for [employer] PE (patient applied for PE on earlier admission this year). May need fci IV antibiotics. Has no established PCP. Driller Brake Lining/Case Management/Outbound Telemarketing Representative will continue to follow up.
[2019-08-25] MEDS: INSULIN REGULAR, HUMAN 100 UNITS/ML, 10 ML VIAL (humuLIN R) SUBCUT PRN ×3 (11:42→21:05)
--- NOTE | 2019-08-25 14:36 | NUR ---
ROUNDS PT IN BED, NO S/S OF DISTRESS OR SOB NOTED, PT HAS NO C/O PAIN AT THIS TIME, PT IN STABLE CONDITION, PT TALKING TO VISITORS AT BEDSIDE, WILL CONTINUE TO MONITOR PT FOR ANY CHANGES.
[2019-08-25 15:15] VITALS: BP_SYST 100
--- NOTE | 2019-08-25 17:00 | NUR ---
Wound Care Update: Wound evaluation canceled during order reconciliation. Patient is status post I&D by Dr. Zurita on 08/24/19. Will check for new orders from Dr. Zurita for wound care.
--- NOTE | 2019-08-25 18:20 | NUR ---
CLOSING NOTE PT IN BED, NO S/S OF DISTRESS OR SOB NOTED, PT HAS NO C/O PAIN AT THIS TIME, PT IN STABLE CONDITION, PT AAOX4, VERBAL. IV CATHETER PATENT, SALINE LOCK, NO SIGNS OF INFECTION OR INFILTRATION NOTED. PT HAS A DRESSING ON RIGHT FOOT, CLEAN AND DRY. BED AT LOWEST POSITION, CALL LIGHT WITHIN REACH, WILL ENDORSE CARE OF PT TO INCOMING NURSE, FALL AND SAFETY PRECAUTIONS IN PLACE. ELEVATED RIGHT FOOT. PT ABLE TO WIGGLE TOES ON RIGHT FOOT DUE TO PARTIAL DRESSING, SECOND TOE IS DARK IN COLOR AND UNABLE TO CHECK CAPILLARY REFILL, EDUCATED PT ON USE OF INCENTIVE SPIROMETER, PT AT 2000ML.
--- NOTE | 2019-08-25 18:25 | NUR ---
MD ROUNDS DR BAUTISTA ROUNDING, AWARE OF PATIENT'S CONDITION.
--- NOTE | 2019-08-25 19:36 | NUR ---
Opening note Received patient awake, resting in bed, hi-fowlers. No sign of distress, nonlabored breathing on room air. IV to RFA. She has headphones and is view her personal computer. Bed is locked in lowest position, bed alarm on and call light w/ in reach. updated board and reviewed plan of care.
[2019-08-25 20:00] VITALS: BP_SYST 131
--- NOTE | 2019-08-25 21:01 | NUR ---
Fingerstick BGT Fingerstick BGT done with result of 202 mg/dL and 4 units of insulin were given as ordered per sliding scale. She is comfortable and presently talking with , who is visiting at bedside. Will continue to monitor.
[2019-08-25] MEDS: TEMAZEPAM 15 MG CAPSULE PO PRN (23:18)
--- NOTE | 2019-08-25 23:32 | NUR ---
AMBULATE RESTROOM / SLEEPING PILL Patient ambulated to restroom w/ use of walker. She returned to bed and foot was place on pillow support, heel off loading. SCD's on. She requested a sleeping pill and was given Restoril as ordered. She has no further needs. Call light w/in reach.
[2019-08-26 00:45] VITALS: BP_SYST 114
[2019-08-26] MEDS: AMPICILLIN SODIUM 1 GM in NS 50 ML IV SCH ×4 (01:28→18:11)
--- NOTE | 2019-08-26 01:36 | NUR ---
Antibiotic Patient resting w/eyes closed and was momentarily awakened. Due IVPB antibiotic given; infusing well. She requested lights off and door closed. Call light w/in reach.
[2019-08-26] MEDS: CLINDAMYCIN 600 MG in D5W 50 ML IV SCH ×3 (04:30→20:33)
--- NOTE | 2019-08-26 04:38 | NUR ---
Antibiotic Due antibiotic given, infusing well and patient tolerating.
--- NOTE | 2019-08-26 07:45 | NUR ---
OPENING NOTE PATIENT AWAKE IN BED WORKING ON LAPTOP. ALERT AND ORIENTED. DENIES PAIN. NO ACUTE DISTRESS. NO SOB. RESPIRATION EVEN AND UNLABORED. SKIN WARM AND DRY TO TOUCH. IV INTACT AND PATENT. BED INLOW AND LOCKED POSITION. ALL NEEDS MET. CONT TO MONITORR. CALL LIGHT IN REACH.
[2019-08-26 07:57] LABS: CREATININE 4.01 mg/dL (0.55-1.30); POTASSIUM 4.4 mmol/L (3.5-5.1); VANCOMYCIN,RANDOM 39.7 ug/mL
[2019-08-26 08:00] VITALS: BP_SYST 120
[2019-08-26] MEDS: CITALOPRAM HYDROBROMIDE 20 MG TABLET PO SCH (08:56)
--- NOTE | 2019-08-26 08:59 | NUR ---
MEDS ALL DUE MEDS ADMINISTERED. TEACHING DONE. ALL NEEDS MET. CONT TO MONITOR
--- NOTE | 2019-08-26 11:15 | NUR ---
SEEN AND EXAMINED BY AT BEDSIDE
[2019-08-26 11:19] VITALS: BP_SYST 128
[2019-08-26] MEDS: HYDROcodone/ACETAMIN 5-325 MG TAB (NORCO/ VICODIN) PO PRN (12:06)
--- NOTE | 2019-08-26 12:30 | NUR ---
BLOOD GLUCOSE IS 144 mg/dL WITH NO INSULIN COVERAGE. DIABETIC TEACHING DONE. ALL NEEDS MET. CONT TO MONITOR
[2019-08-26 15:24] VITALS: BP_SYST 120
--- NOTE | 2019-08-26 15:30 | NUR ---
CM SPOKE TO AMPARO IN CASE MANAGEMENT REGARDING PATIENT'S ORTHO WEDGE SHOE; PER PATIENT SHE IS SIZE 11 WIDE.
--- NOTE | 2019-08-26 15:40 | NUR ---
Discharge Planning: DCP called Ama at [employer] [employer] ([phone]) make her aware to process order and gave patient shoe size.
--- NOTE | 2019-08-26 17:00 | NUR ---
ORTHOTICS ORTHO WEDGE SHOE WAS DROPPED OFF TO PATIENT. TEACHING DONE AND PATIENT WITH NO QUESTION OR CONCERN AT THIS TIME.
[2019-08-26] MEDS: INSULIN REGULAR, HUMAN 100 UNITS/ML, 10 ML VIAL (humuLIN R) SUBCUT PRN ×2 (18:12→20:56)
--- NOTE | 2019-08-26 18:15 | NUR ---
BLOOD GLUCOSE 165 mg/dL WITH INSULIN COVERAGE ORDERED.
--- NOTE | 2019-08-26 19:05 | NUR ---
OPENING NOTES RECEIVE PATIENT IN BED AAO X4. BREATHING UNLABORED ON ROOM AIR. DENIES PAIN AT THIS TIME. RT FOOT DRESSING DRY AND INTACT. PATIENT ASSISTED OUT OF BED TO RESTROOM WITH WALKER USE TOLERATING WELL. BED IN LOWEST LOCKED POSITION. CALL LIGHT WITH IN REACH.
--- NOTE | 2019-08-26 19:31 | NUR ---
CLOSING NOTE PATIENT STABLE. SITTING UP WORKING ON LAPTOP. NO ACUTE DISTRESS. NO SOB. RESPIRATION EVEN AND UNLABORED. SKIN WARM AND DRY TO TOUCH. ALL NEEDS MET. CONT TO MONITOR.
[2019-08-26 20:45] VITALS: BP_SYST 152
--- NOTE | 2019-08-26 20:56 | NUR ---
MED PASS PATIENT DUE ANTIBIOTIC INFUSING WITH IV LINE INTACT AND PATENT. BEDTIME BLOOD SUGAR 169 COVERED WITH 2 UNITS OF REGULAR INSULIN PER SLIDING SCALE COVERAGE ORDER. PATIENT NAUSEATED AND C/O HEAD ACHE. AT BEDSIDE. VITAL SIGNS STABLE. PATIENT REQUESTING ONLY TYLENOL FOR HEADACHE DOES NOT WANT TO TAKE NORCO AT THIS TIME. PATIENT MADE AWARE WILL GET ORDER FROM MD FOR TYLENOL.
[2019-08-26] MEDS ORDERED: ACETAMINOPHEN 325 MG TABLET PO PRN (21:30)
[2019-08-26] MEDS ORDERED: ONDANSETRON HCL 4 MG/2 ML VIAL IVP PRN (21:30)
--- NOTE | 2019-08-26 22:30 | NUR ---
PATIENT REFUSED PATIENT REFUSED TYLENOL AT THIS TIME PER PATIENT SHE FEELS OK RIGHT NOW. EARLIER REQUESTED SLEEPING PILL NOT TAKEN AT THIS TIME. PER PATIENT SHE WILL LET NURSE KNOW IF SHE WILL STILL NEED IT FOR TONIGHT.
[2019-08-27] MEDS: AMPICILLIN SODIUM 1 GM in NS 50 ML IV SCH ×4 (00:30→18:47)
[2019-08-27 00:33] VITALS: BP_SYST 110
[2019-08-27] MEDS: TEMAZEPAM 15 MG CAPSULE PO PRN ×2 (00:35→22:43)
--- NOTE | 2019-08-27 00:35 | NUR ---
ATB/SLEEPING PILL PATIENT DUE ANTIBIOTIC INFUSING WITH IV LINE INTACT. PATIENT MEDICATED WITH RESTORIL REQUESTED.
--- NOTE | 2019-08-27 02:15 | NUR ---
ROUNDS PATIENT RESTING IN BED. NO DISTRESS NOTED.
[2019-08-27] MEDS: CLINDAMYCIN 600 MG in D5W 50 ML IV SCH ×3 (04:26→21:09)
--- NOTE | 2019-08-27 04:26 | NUR ---
ATB PATIENT DUE ANTIBIOTIC INFUSED. PATIENT AWAKE WATCHING SHOW IN HER LAPTOP. NO C/O PAIN.
--- NOTE | 2019-08-27 07:05 | NUR ---
CLOSING NOTES PATIENT RESTING IN BED NOT IN ANY FORM OF DISTRESS. PATIENT NEEDS ATTENDED. CALL LIGHT WITH IN REACH.
--- NOTE | 2019-08-27 07:10 | NUR ---
RN OPENING NOTE REPORT WAS ENDORSED BY NIGHT NURSE ,PATIENT APPEARS TO BE RESTING WITH BOTH EYES CLOSED NO SIGNS OF ANY DISTRESS,BREATHING IS EQUAL AND NONLABORED. PATIENT HAS ALL SAFETY PRECAUTIONS IN PLACE. NO OTHER NEEDS AT THIS TIME WILL CONTINUE TO MONITOR.
[2019-08-27 07:38] VITALS: BP_SYST 110
[2019-08-27 08:00] VITALS: BP_SYST 134
[2019-08-27] MEDS: CITALOPRAM HYDROBROMIDE 20 MG TABLET PO SCH (09:10)
--- NOTE | 2019-08-27 09:11 | NUR ---
Medication Addendum: 08/27/19 at 1811 by Jaclyn Waddell RN PATIENTS SCHEDULED MEDICATION GIVEN ORDERED. PATIENT IS AWAKE AND ALERT, NO SIGNS OF ANY DISTRESS,BREATHING IS EQUAL AND NON LABORED. PATIENT EDUCATED TO USE CALL LIGHT FOR ASSISTANCE. PATIENT EDUCATED ON IS AND ABLE TO INSPIRE 1999. PATIENT HAS NO OTHER NEEDS AT THIS TIME. WILL CONTINUE TO MONITOR.
--- NOTE | 2019-08-27 11:38 | NUR ---
ACCU CHECK/ MEDICATION PATIENTS SCHEDULED MEDICATION GIVEN ORDERED. PATIENT IS LAYING IN BED NO SIGNS OF ANY DISTRESS, BREATHING IS EQUAL AND NON LABORED. PATIENT HAS ALL SAFETY PRECAUTIONS IN PLACE. EDUCATED TO USE CALL LIGHT FOR ASSISTANCE , CALL LIGHT IS WITH PATIENT. ACCU CHECK DONE NO COVERAGE NEEDED. PATIENT IS STABLE NO OTHER NEEDS AT HIS TIME. WILL CONTINUE TO MONITOR.
[2019-08-27 12:03] VITALS: BP_SYST 126
--- NOTE | 2019-08-27 13:05 | NUR ---
MEDICATION PATIENT IS AWAKE AND ALERT LAYING IN BED NO SIGNS OF ANY DISTRESS, BREATHING IS EQUAL AND NON LABORED. PATIENT STATES THAT SHE IS GOING TO TRY AND EAT A LITTLE LUNCH RIGHT NOW. PATIENTS PRESCRIBED MEDICATION GIVEN ORDERED. PATIENT HAS ALL SAFETY PRECAUTIONS IN PLACE. CALL LIGHT IS WITH HER. EDUCATED TO USE FOR ASSISTANCE. NO OTHER NEEDS AT THIS TIME. WILL CONTINUE TO MONITOR.
--- NOTE | 2019-08-27 15:00 | NUR ---
RN ROUNDING PATIENT IS LAYING IN BED NO SIGNS OF ANY DISTRESS, BREATHING IS EQUAL AND NON LABORED. PATIENT SHOWS NO SIGNS OF ANY DISTRESS, BREATHING IS EQUAL AND NON LABORED. ALL SAFETY PRECAUTIONS IN PLACE. CALL LIGHT IS WITH PATIENT. EDUCATED TO USE FOR ASSISTANCE. WILL CONTINUE TO MONITOR.
[2019-08-27 16:30] VITALS: BP_SYST 135
--- NOTE | 2019-08-27 17:29 | NUR ---
accu check Patient is awake and alert laying in bed no signs of any distress, breathing is equal and non labored. Patient accu check done no coverage needed. Patient has all safety precautions in place. Call light is with her educated to use for assistance. No other needs at this time will continue to monitor.
[2019-08-27 20:00] VITALS: BP_SYST 154
--- NOTE | 2019-08-27 20:00 | NUR ---
Pt is sitting up in bed fully awake, alert and oriented x4. Skin is warm and dry to touch. No signs or symptoms of hypoglycemia or hyperglycemia noted. Rt foot dressing is dry and intact. Saline lock in LFA is without any signs of infiltration. Fall and safety precautions are in place. Call light is with pt and bed is in the lowest and locked positions.
[2019-08-27] MEDS: INSULIN REGULAR, HUMAN 100 UNITS/ML, 10 ML VIAL (humuLIN R) SUBCUT PRN (21:13)
--- NOTE | 2019-08-27 21:13 | NUR ---
Accucheck 166 and skin remains warm and dry to touch. 2 units Regular Insulin was given SQ. Pt was given 1 pack Juan Alberto crackers for HS snack per pt's request. Pt stated she will eat them in the middle of the night if she needs them. Fall and safety precautions are in place.
--- NOTE | 2019-08-27 21:30 | NUR ---
Bottom of right foot dressing slightly moistened with serous drainage. Dressing was reinforced with 4X4 gauze and elaine wrap.
--- NOTE | 2019-08-27 22:43 | NUR ---
Restoril 15mg given po per pt's request for sleep. Pt declined bed alarm. Call light is with pt and bed is in the lowest and locked positions. Pt was instructed to call for assistance as needed and before getting out of bed if she feels dizzy or drowsy and pt verbalized understanding.
--- NOTE | 2019-08-28 | NUR ---
Pt is sleeping without any distress noted. Saline lock is intact in LFA. Call light is with pt and bed is in the lowest and locked positions.
[2019-08-28 00:31] VITALS: BP_SYST 141
--- NOTE | 2019-08-28 01:09 | NUR ---
Dr. Zurita called and gave orders to make pt NPO effective now and to obtain consent for surgery at 0930 today.
[2019-08-28] MEDS: AMPICILLIN SODIUM 1 GM in NS 50 ML IV SCH ×4 (01:14→18:23)
--- NOTE | 2019-08-28 01:15 | NUR ---
Pt instructed on nothing by mouth starting immediately for debridement and closure of her right foot wound at [address] Zurita. Pt agreed to be kept NPO, but stated MD did not discuss surgery with her. Unable to obtain surgical consent from pt at this time since MD has not discussed the surgery with pt.
--- NOTE | 2019-08-28 03:00 | NUR ---
Pt is sleeping without any distress noted. Fall and safety precautions are in place.
--- NOTE | 2019-08-28 05:00 | NUR ---
Pt is awake and not in any distress. Saline lock in LFA is without any signs of infiltration. Call light is with pt and bed is in the lowest and locked positions.
[2019-08-28] MEDS: CLINDAMYCIN 600 MG in D5W 50 ML IV SCH ×3 (05:15→20:57)
--- NOTE | 2019-08-28 06:32 | NUR ---
PT IS AWAKE AND SITTING UP IN BED. RT FOOT DRESSING IS DRY AND INTACT. PT REMAINS NPO FOR SURGERY TODAY. ALL PT'S NEEDS WERE ATTENDED TO. FALL AND SAFETY PRECAUTIONS ARE IN PLACE. WILL ENDORSE TO DAY SHIFT NURSE.
[2019-08-28 07:54] VITALS: BP_SYST 141
--- NOTE | 2019-08-28 09:30 | NUR ---
Seen and examined by DR. Zurita explained the surgical procedure verbalized understanding , consent signed, to OR at 0940 hours.
[2019-08-28] MEDS ORDERED: POLYMYXIN 500,000/BACIT.10,000 UNITS in NS IRR 1 L IR ONE (09:46)
[2019-08-28] MEDS ORDERED: LR 1,000 ML IV SCH (10:33)
[2019-08-28] MEDS ORDERED: MEPERIDINE HCL/PF 25 MG/ML DISP.SYRIN IVP PRN (10:45)
[2019-08-28] MEDS ORDERED: HYDROmorphone 2 MG/ML VIAL IVP PRN ×2 (10:45)
[2019-08-28] MEDS ORDERED: HYDROmorphone 1 MG INJ. 1 MG/ML AMPUL IVP PRN (10:45)
[2019-08-28] MEDS ORDERED: DEXAMETHASONE SOD PHOSPHATE 4 MG/ML VIAL ONE (11:30)
[2019-08-28] MEDS ORDERED: fentaNYL CITRATE 250 MCG/5 ML AMP ONE (11:30)
[2019-08-28] MEDS ORDERED: ONDANSETRON HCL 4 MG/2 ML VIAL ONE (11:30)
[2019-08-28] MEDS ORDERED: KETOROLAC TROMETHAMINE 30 MG VIAL ONE (11:30)
[2019-08-28] MEDS ORDERED: NS 1000 ML IV.SOLN IV ONE (11:30)
[2019-08-28] MEDS ORDERED: ROCURONIUM BROMIDE 10 MG/ML (ZEMURON) ONE (11:30)
[2019-08-28] MEDS ORDERED: MIDAZOLAM HCL 5 MG/ML VIAL (VERSED) IV ONE (11:30)
[2019-08-28] MEDS ORDERED: PROPOFOL 200MG/ 20ML VIAL (DIPRIVAN) IV ONE (11:30)
[2019-08-28] MEDS ORDERED: SEVOFLURANE 15 MIN GAS INH ONE (11:30)
--- NOTE | 2019-08-28 12:25 | NUR ---
Patient is back from PACU after surgical procedure amputation right second toe and debridement under GA, right foot with dry dressing able to wiggle toes, no sensation , warm to touch, awake /alert denies any pain, vitals sign monitored , blood sugar checked 122 mg/dl liquid diet served to begin with and tolerated well w/o nausea/vomiting.,advance to [facility].
[2019-08-28] MEDS: CITALOPRAM HYDROBROMIDE 20 MG TABLET PO SCH (13:25)
[2019-08-28 16:18] VITALS: BP_SYST 138
--- NOTE | 2019-08-28 16:23 | NUR ---
Nutrition F/U RD reviewed pt's current EMR record including diet Hx, physician notes, nursing notes, pertinent labs/meds/procedures, care trends, and care activity. 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 Pt was seen resting in bed at time of RD visit. Pt reported feeling hungry, and was looking forward to dinner. RD offered Glucerna and Jonathon supplementation for optimal wound healing; pt agreeable. Pt prefers vanilla-flavored Ensure Enlive and fruit punch Jonathon. RD notified [facility] staff. Current % PO 59% average x13 meals Estimated Energy Expenditure (kcals/day) 2053-3957 kcal/day (25-30 kcal/kg Adj IBW for wound healing) Estimated Protein Required (g/day) 62-92 gm/day (0.8-1.2 gm/kg Adj IBW for CKD, wound healing) Estimated Fluid Required (l/day) Per physician d/t CKD Problem/Etiology/Signs/Symptoms Increased nutritional needs related to metabolic demands as evidenced by estimated nutritional requirements for wound healing. *ongoing Expected Outcomes/Goals - Monitor appetite and PO intakes w/ goal of pt meeting at least 75% of estimated nutritional needs, labs trending WNL, normal GI function, and skin integrity/wt maintenance Dietitian Recommendations * Recommend CCHO diet w/ Glucerna BID, Jonathon BID Follow Up Mod Risk: F/U in 3-5 days
--- NOTE | 2019-08-28 16:30 | NUR ---
Dietitian Recommendations * [facility] w/ Glucerna BID, Jonathon BID LP, RD Please refer to Nutrition F/U for details.
[2019-08-28] MEDS: INSULIN REGULAR, HUMAN 100 UNITS/ML, 10 ML VIAL (humuLIN R) SUBCUT PRN ×2 (16:59→21:12)
[2019-08-28 19:00] VITALS: BP_SYST 135
--- NOTE | 2019-08-28 19:15 | NUR ---
change of shift.pt.presents quiescent affect;calm.pt]s @bedside;visiting.pt.presents s/p surgery;rt.foot.metatarsal amputation;dsg intact;absent drainage.pt.stated no pain.pt.presents iv access;intact;patent;iv fluids infusing.pt capable to ambulate/reposition self.call light/telephone w/in reach of the pt.
[2019-08-28 20:00] VITALS: BP_SYST 135
--- NOTE | 2019-08-28 20:00 | NUR ---
pt.assessed.v/s assessed.values w/in normal limits.no c/o pain,nausea.pt.'s @bedside;has provided food from outside the hospital; [facility].pt.apprised.i have apprised the pt that i may provide snacks/beverages w/in the shift.iv access intact;patent iv fluids infusing.pt.capable to ambulate/reposition self.call light/telephone w/in reach of the pt.
--- NOTE | 2019-08-28 20:30 | NUR ---
i have assessed the blood glucose:value;238mg/dl.i have apprised the pt.of the blood glucose value and will require the administration insulin per sliding scale.
--- NOTE | 2019-08-28 21:00 | NUR ---
2100pmedications administered.i have administered insulin;regular;4-units.no requests posited @this hour.
--- NOTE | 2019-08-28 22:00 | NUR ---
pt.assessed.pt.had requested medication;sleep.i have administered restoril;15mg po.no additional requests posited@this hour. no c/o pin,nausea.general status stable.respiratory status stable;unlabored.iv access intact;patent:iv fluids infusing.pt.capable to reposition self.call light/telephone w/in reach of the pt.
[2019-08-28] MEDS: TEMAZEPAM 15 MG CAPSULE PO PRN (22:06)
[2019-08-29] VITALS: BP_SYST 130
--- NOTE | 2019-08-29 | NUR ---
pt.assessed.v/s values w/in normal limits.no c/o pain,nausea.i have administered ampicillan;abx;ivpb: 0100a dose. iv access ;intact;patent.pt.had requested soda;diet;i apprised the pt.that coke;diet is available. pt.refused.no additional requests posited @this hour.pt capable to reposition self.call light/telephone w/in reach of the pt.
[2019-08-29] MEDS: AMPICILLIN SODIUM 1 GM in NS 50 ML IV SCH ×4 (00:30→18:56)
--- NOTE | 2019-08-29 02:00 | NUR ---
pt.assessed.pt.presents quiescent affect;calm,somnolent.iv access intact;patent:iv fluids infusing.general status stable.respiratory status stable.unlabored.pt.capable to reposition self.call light/telephone w/in reach of the pt.
--- NOTE | 2019-08-29 04:00 | NUR ---
pt assessed.pt.presents quiescent affect;calm,somnolent.iv acces intact;patent;iv fluids infusing. i have administered the ampicillin;abx;ivpb:0400a dose.general status stable.respiratory status stable;unlabored. pt.capable to reposition self.call light/telephone w/in reach of the pt.
[2019-08-29] MEDS: CLINDAMYCIN 600 MG in D5W 50 ML IV SCH ×3 (04:30→20:06)
[2019-08-29] MEDS: INSULIN REGULAR, HUMAN 100 UNITS/ML, 10 ML VIAL (humuLIN R) SUBCUT PRN ×3 (06:04→20:09)
--- NOTE | 2019-08-29 06:15 | NUR ---
pt.assessed.i have assessed the blood glucose;value;177mg/dl.i have administered insulin:[id number].i have administered cleocin;abx; ivpb:0600a dose.no c/o pain,nausea.call light/telephone w/in reach of the pt.
[2019-08-29 07:41] VITALS: BP_SYST 128
--- NOTE | 2019-08-29 08:00 | NUR ---
Opening notes, received pt in bed, pt is aaox4, denies pain, no sob, no resp distress. r. foot wound dressing intact and clean and dry, no bleeding noted. safety precaution in place call light in reach. bed in low position. encouraged pt to call for assist and pain meds. will cont to monitor.
[2019-08-29] MEDS: CITALOPRAM HYDROBROMIDE 20 MG TABLET PO SCH (08:17)
--- NOTE | 2019-08-29 10:00 | NUR ---
pt in bed, no c/o pain, no sob, no resp distress. will cont to monitor.
--- NOTE | 2019-08-29 12:00 | NUR ---
pt in bed, no c/o pain, no sob, no resp distress. will cont to monitor.
[2019-08-29 12:35] VITALS: BP_SYST 147
--- NOTE | 2019-08-29 16:00 | NUR ---
pt in bed, no c/o pain, will cont to monitor. dr cisneros here and seen pt. pt said she feels depressed again because she wanted to go home.
[2019-08-29 16:24] VITALS: BP_SYST 146
--- NOTE | 2019-08-29 16:36 | NUR ---
Discharge barriers: DEMETRIUS s/w pt at bedside : 1. Pt is self pay, Medical screening filed on 08/24 and is waiting for approval for hospital presumptive benefits. 2. The pt will need IV abx x 6 weeks . Demetrius is to find any HH and or infusion company to accept the self pay patient. 3. Pt needs Ortho shoe-- Ortho wedge shoe delivered to pt on 08/27. 4. Pt will need wound care. Addendum: 08/29/19 at 1708 by Keara Manrique RN The pt wants to leave AMA dt worrying about her children:a 15 yo, a 20 months old and a 6 months old. CM informed of the pt 's rights of self care and decision but not advise for her to leave AMA. DEMETRIUS discussed with pt at [facility] regarding the need of IV abx treatments and the process of getting medical benefits. She wants to spend time thinking on what to do and will call nurse if decided to leave.
--- NOTE | 2019-08-29 17:45 | NUR ---
pt in bed, visitors at bedside, no c/o pain.
--- NOTE | 2019-08-29 19:27 | NUR ---
closing notes, pt has been stable, no fever. no sob, no c/o pain, all abx given. endorsed to night rn bijal.
--- NOTE | 2019-08-29 19:31 | NUR ---
Initial Notes Received handoff report from offgoing dayshift nurse Marino-RN at the bedside. Patient is resting comfortably in bed, AAOx4. No SOB, no acute distress, no complaints of pain at this time. IV site intact, dressing clean and dry, saline locked. Bed is locked, in the lowest position, 2x side rails up, bed alarm is on. Call light is within reach. Patient states that she doesn't have much of an appetite right now, and states that she doesn't like the hospital food. Family currently at the bedside. Family states that they will try to bring her something to eat that she enjoys. Educated family regarding current [facility] diet status, and family verbalizes understanding. Will continue with plan of care.
--- NOTE | 2019-08-29 19:45 | NUR ---
patient demonstrated proper incentive spirometer usage. able to reach 1500ml. encouraged patient to use the incentive spirometer frequently while awake. patient verbalized understanding.
[2019-08-29 20:00] VITALS: BP_SYST 129
--- NOTE | 2019-08-29 20:00 | NUR ---
PATIENT REFUSES BED ALARM AT THIS TIME. STATES SHE WOULD LIKE TO GO TO THE RESTROOM "[facility]." PATIENT ALSO STATES THAT SHE IS ABLE TO AMBULATE EASILY WITH STEADY GAIT, AND THAT THE TOE AMPUTATION DOES NOT AFFECT HER MOVEMENT. FAMILY IS AT THE BEDSIDE, WHICH INCLUDES BOYFRIEND CLAU, PATIENT'S SON, PATIENT'S FATHER, AND PATIENT'S [id number]. ENCOURAGED TO CALL FOR ASSISTANCE.
[2019-08-29] MEDS: TEMAZEPAM 15 MG CAPSULE PO PRN (20:14)
--- NOTE | 2019-08-29 22:00 | NUR ---
PATIENT RESTING COMFORTABLY IN BED, EYES ARE CLOSED. BREATHING EVEN AND UNLABORED WITH VISIBLE CHEST RISE AND FALL NOTED. NO SOB, NO ACUTE DISTRESS, NO SIGNS OF PAIN OR FACIAL GRIMACING. CALL LIGHT WITHIN REACH.
[2019-08-30 00:01] VITALS: BP_SYST 130
[2019-08-30] MEDS: AMPICILLIN SODIUM 1 GM in NS 50 ML IV SCH ×2 (00:34→06:18)
--- NOTE | 2019-08-30 00:40 | NUR ---
Patient is resting comfortably in bed, with eyes closed. Breathing even and unlabored, noted visible chest rise and fall. No SOB, no acute distress, no signs of pain or facial grimacing. call light within reach.
[2019-08-30] MEDS: CLINDAMYCIN 600 MG in D5W 50 ML IV SCH (03:11)
--- NOTE | 2019-08-30 03:54 | NUR ---
IV RE-INSERTION: Complaining of fluid leaking from IV site. Restarted on right wrist #[id number] . Successful after 1 attempts. Resumed current Iv antibiotics, see emar. Will observe for any signs of infiltration. IV site on left forearm removed, catheter intact.
--- NOTE | 2019-08-30 06:27 | NUR ---
Patient's bedside accu check blood glucose is 84 mg/dl. No Insulin coverage needed. Provided patient with orange juice per patient request.
--- NOTE | 2019-08-30 06:50 | NUR ---
Closing Notes Patient is resting comfortably in bed, awake and alert. No SOB, no acute distress, no complaints of pain at this time. IV site intact, dressing clean and dry, currently infusing antibiotics per MD order, see eMAR. Bed is locked, in the lowest position, 2x side rails up. Call light within reach. Fall and safety precautions maintained. All needs have been met during this shift. Will endorse care to oncoming dayshift nurse.
--- NOTE | 2019-08-30 07:50 | NUR ---
Opening notes, received pt in bed, pt is aaox4, denies pain, no sob, no resp distress. r. foot wound dressing intact and dry, old drainage noted. no bleeding. safety precaution in place call light in reach. bed in low position. encouraged pt to call for assist and pain meds. will cont to monitor.
[2019-08-30 08:04] VITALS: BP_SYST 140
[2019-08-30] MEDS: CITALOPRAM HYDROBROMIDE 20 MG TABLET PO SCH (08:17)
--- NOTE | 2019-08-30 11:45 | NUR ---
PT SIGNED AMA FORM, DR DIAZ AND DR MONTAÑO MADE AWARE. TOLD PT THAT DR DIAZ WANT HER TO STAY BUT CANNOT DO ANYTHING IF SHE WANTS TO GO AMA. DR MONTAÑO SAID PT HAS TO SEE HIM ON SAT OR AND PT HAS TO CALL HIS PT IN AM SO HE CAN CHANGE THE DRESSING AND GIVE INSTRUCTION ON HOW TO CHANGE DRESSING, TEL NO PROVIDED TO PT. PT STATED SHE HAS BEEN MISSING AND WANT TO SEE HER CHILDREN. ASKED PT IF IT WOULD HELP TO JUST LET HER KIDS VISIT HER IN THE HOSPITAL, PT STATED " THAT WOULD NOT BE ENOUGH". SUGGESTED TO PT TO GO TO [facility] SO SHE CAN CONTINUE IV ANTIBIOTICS. ALSO TOLD PT THAT SHE MAY LIKELY GET HER [employer] MEDICARE INSURANCE IF SHE STAYS IN THE HOSPITAL. UNABLE TO CONVINCE PT TO STAY. FAMILY MEMBER AT BEDSIDE AND HEARD ALL OUR CONVERSATION.
--- NOTE | 2019-08-30 11:50 | NUR ---
PT MARIO MONTANO, PT'S MOM TOOK PT HOME.
[2019-08-30 17:35] VITALS: BP_SYST 140
== END 2019-08-30 11:50 | disposition left against medical advice (07) | DRG 853 ==
LOC: SED 14:40 → SMU 16:21
PROVIDERS: ADMIT Family Medicine; ATTEND Family Medicine
PROC: 30233N1 Transfusion of Nonautologous Red Blood Cells into Peripheral Vein, Percutaneous Approach (ICD-10-PCS; 2019-08-24)
PROC: 0Y6R0Z3 Detachment at Right 2nd Toe, Low, Open Approach (ICD-10-PCS; 2019-08-28)
PROC: 0JBQ0ZZ Excision of Right Foot Subcutaneous Tissue and Fascia, Open Approach (ICD-10-PCS; principal; 2019-08-28 09:00)
DX: A41.9 Sepsis, unspecified organism (principal); E43 Unspecified severe protein-calorie malnutrition; M72.6 Necrotizing fasciitis; E10.52 Type 1 diabetes mellitus with diabetic peripheral angiopathy with gangrene; L02.611 Cutaneous abscess of right foot; L03.115 Cellulitis of right lower limb; D64.9 Anemia, unspecified; E10.21 Type 1 diabetes mellitus with diabetic nephropathy; E10.22 Type 1 diabetes mellitus with diabetic chronic kidney disease; E10.621 Type 1 diabetes mellitus with foot ulcer; E10.628 Type 1 diabetes mellitus with other skin complications; Z53.29 Procedure and treatment not carried out because of patient's decision for other reasons; L97.519 Non-pressure chronic ulcer of other part of right foot with unspecified severity; E10.65 Type 1 diabetes mellitus with hyperglycemia; E66.9 Obesity, unspecified; F32.9 Major depressive disorder, single episode, unspecified; N18.9 Chronic kidney disease, unspecified; Z79.4 Long term (current) use of insulin; Z98.84 Bariatric surgery status; Z79.899 Other long term (current) drug therapy; Z68.30 Body mass index [BMI] 30.0-30.9, adult
CPT/HCPCS: 36415; 80048; 80053; 80202-TC; 81000-TC; 82962; 83036; 83605; 83735-TC; 84703; 85007; 85025; 85027; 85610-TC; 85730-TC; 86886; 86900; 86901; 86920; 87040-TC; 87070; 87070-TC; 87075-TC; 87081; 87086; 87186-TC; 88305; 88311; 94640; 94760; 96365; 96368; 96375; 99291; J0290; J1100; J1815; J1885; J2250; J2270; J2405; J2543; J2704; J3010; J3370; J3490; J7030; J7040; J7050; J7060; J7120; P9021